=== PATIENT | female | born 1990 | race Caucasian/White ===

== ENCOUNTER 2025-04-04 11:49 | Outpatient (RCR) | payer MEDICAID, SELFPAY ==
[2025-04-04 12:22] LABS: HCG Qualitative,Urine Negative
--- NOTE | 2025-04-04 12:30 | XR_ITS ---
Examination: CHE, hepatobiliary radioisotope scan Gallbladder ejection fraction study. Date and time of exam: April 04, 2025 1229 hours INDICATIONS: Right lower abdominal pain and cramping beginning 3 months ago Technique: 5.6 mCi of 99M Hepatolite administered. Serial imaging then obtained from immediate through 60 minutes. 1.3 mcg selective catheter Kinevac administered for gallbladder ejection fraction study. Findings: Radioisotope activity within the liver is reasonably homogenous. Gallbladder, common bile duct small bowel activity noted Impression: Gallbladder activity Abnormal gallbladder ejection fraction, 29%, normal greater than 35%
== END 2025-04-09 23:59 | disposition home or self-care (01) ==
LOC: SNUC 11:49
DX: Z32.00 Encounter for pregnancy test, result unknown (principal); R93.2 Abnormal findings on diagnostic imaging of liver and biliary tract
CPT/HCPCS: 78227; 81025; A9537; J2805